=== PATIENT | male | born 1985 | race Caucasian/White ===

== ENCOUNTER 2020-09-30 20:05 | Emergency (ER) | payer MEDICAID, SELFPAY ==
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
[2020-09-30 20:13] VITALS: BMI 29.5
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
[2020-09-30 20:17] VITALS: BP 150/100; PULSE 83; RESP 16; O2SAT 95
--- NOTE | 2020-09-30 20:19 | PC.NURSE ---
pt to RAD
[2020-09-30 20:23] LABS: Basophils # 0.1 K/mm3 (0-0.2); Basophils % 0.6 % (0.1-2.0); Eosinophils # 0.2 K/mm3 (0.0-0.4); Eosinophils % 1.8 % (0.1-12.0); Hemoglobin 14.8 g/dL (14.1-18.0); Lymphocytes # 3.8 K/mm3 (0.7-4.5); Lymphocytes % 37.6 % (10-50); Mean Corpuscular HGB Conc 32.2 g/dL (31.8-35.4); Mean Corpuscular Hemoglobin 27.2 pg (27.0-31.2); Mean Corpuscular Volume 84.5 fl (80-94); Mean Platelet Volume 8.4 fl (7.4-10.4); Monocytes # 0.6 K/mm3 (0.1-1.0); Monocytes % 5.6 % (1.7-9.3); Neutrophils # 5.5 K/mm3 (1.8-7.8); Neutrophils % 54.4 % (37.0-80.0); Platelet Count 259 K/mm3 (142-424); Red Blood Count 5.44 M/mm3 (4.60-6.20); Red Cell Distribution Width 13.2 % (11.5-17.5); White Blood Count 10.2 K/mm3 (4.8-10.8)
[2020-09-30 20:27] LABS: Chloride 105 mmol/L (98-107); Potassium 3.4 mmoL/L (3.5-5.1); Sodium 138 mmol/L (136-145)
[2020-09-30 20:29] LABS: Alanine Aminotransferase 32 U/L (12-78); Aspartate Amino Transferase 38 U/L (17-59); Blood Urea Nitrogen 14 mg/dl (9-20); Creatinine Clearance Estimated 123 mL/min (50-200); Estimated Glomerular Filt Rate 77 ml/min (>60); GFR (African American) 93 ML/MIN (>60)
[2020-09-30 20:30] LABS: Albumin Level 4.8 g/dl (3.5-5.0); Albumin/Globulin Ratio 1.5 (1.1-1.8); Alkaline Phosphatase 67 U/L (38-126); Anion Gap 12.4 mEq/L (5-15); Bilirubin,Total 0.5 mg/dl (0.2-1.3); Calcium 9.6 mg/dl (8.4-10.2); Carbon Dioxide 24 mmol/L (22.0-30.0); Globulin 3.2 g/dL (1.3-3.2); Glucose 114 mg/dl (74-100)
[2020-09-30 21:00] VITALS: BP 134/70; PULSE 79; RESP 14; O2SAT 99
--- NOTE | 2020-09-30 21:23 | PC.NURSE ---
at bedside suturing
[2020-09-30 21:30] VITALS: BP 122/73; PULSE 76; RESP 16; O2SAT 97
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
[2020-09-30 22:00] VITALS: BP 122/73; PULSE 73; RESP 14; O2SAT 99
[2020-09-30 22:52] VITALS: BP 122/73; PULSE 73; RESP 17; TEMP 36.8; O2SAT 98
[2020-11-12 12:51] LABS: POC Glucose,Bedside 105 (70-110)
== END 2020-09-30 22:55 | disposition home or self-care (01) ==
PROVIDERS: Emergency Provider Emergency Medicine
DX: S00.03XA Contusion of scalp, initial encounter (principal); S01.01XA Laceration without foreign body of scalp, initial encounter; S20.211A Contusion of right front wall of thorax, initial encounter; V86.55XA Driver of 3- or 4- wheeled all-terrain vehicle (ATV) injured in nontraffic accident, initial encounter; Y92.89 Other specified places as the place of occurrence of the external cause
CPT/HCPCS: 12001; 70450; 71045; 71275; 72125; 72128; 72131; 72170; 74177; 80053; 82962; 85025; 90471; 90714; 96365; 96375; 99282; Q9967